=== PATIENT | female | born 1960 | race Caucasian/White ===

== ENCOUNTER 2019-01-06 21:21 | Emergency (ER) | payer OTHER ==
[~2019-01-06] VITALS: Ht 165.1 cm; Wt 89.8 kg
[2019-01-06] MEDS ORDERED: Hydrocodone-Ap1 EA20 PO (22:42)
[2019-01-06] MEDS ORDERED: TIZA4 PO (22:43)
[2019-01-06] MEDS ORDERED: HYDCHL25 PO (22:43)
[2019-01-08] MEDS ORDERED: TRAM50 (00:56)
[2019-01-08] MEDS ORDERED: Percocet 5-3251 EACH PO (03:01)
== END 2019-01-07 00:45 | disposition home or self-care (01) ==
LOC: ER 21:21
DX: S52.532A Colles' fracture of left radius, initial encounter for closed fracture (principal); S52.612A Displaced fracture of left ulna styloid process, initial encounter for closed fracture; Z87.891 Personal history of nicotine dependence; Z79.899 Other long term (current) drug therapy; W11.XXXA Fall on and from ladder, initial encounter
CPT/HCPCS: 25605; 73110; 99283-25

== ENCOUNTER 2019-01-08 00:26 | Emergency (ER) | payer OTHER ==
[~2019-01-08] VITALS: Ht 165.1 cm; Wt 89.8 kg
[~2019-01-08 00:26] MED LIST: HYDCHL25 PO; Hydrocodone-Ap1 EA20 PO; TIZA4 PO
[2019-01-08] MEDS ORDERED: TRAM50 (00:56)
[2019-01-08] MEDS ORDERED: Percocet 5-3251 EACH PO (03:01)
== END 2019-01-08 03:15 | disposition home or self-care (01) ==
LOC: ER 00:26
DX: S52.532G Colles' fracture of left radius, subsequent encounter for closed fracture with delayed healing (principal); Z87.891 Personal history of nicotine dependence; Z79.899 Other long term (current) drug therapy; X58.XXXD Exposure to other specified factors, subsequent encounter
CPT/HCPCS: 96372; 99282-25; A9270; J1885